=== PATIENT | female | born 1935 | race Caucasian/White ===

== ENCOUNTER 2019-07-18 17:04 | Inpatient (IN) ==
--- NOTE | 2019-07-18 17:52 | PROVIDER DOCUMENTATION ---
HPI-General Adult - General Chief Complaint: Abnormal Lab[s] Stated Complaint: HEMOGLOBIN LOW Time Seen by Provider: 07/18/19 17:36 Source: patient Allergies/Adverse Reactions: Patient Allergies Allergy/AdvReac Type Severity Reaction Status Date / Time No Known Allergies Allergy Verified 01/26/19 06:32 Home Medications: Home Medication List Medication Instructions Recorded Confirmed Last Taken Type Glipizide E.r. [Glucotrol Xl] 7.5 mg PO DAILY 07/24/12 01/26/19 01/25/19 08:00 History Metoprolol Succinate E.r. [Toprol 50 mg PO QAM 07/24/12 01/26/19 01/26/19 05:30 History Xl] SIMVAstatin [Zocor] 40 mg PO HS 07/24/12 01/26/19 01/25/19 19:00 History Apixaban [Eliquis] 5 mg PO BID #0 tablet 01/25/14 01/26/19 01/23/19 Rx Propafenone S.r. [Rythmol Sr] 225 mg PO BID #60 capsule 01/25/14 01/26/19 01/25/19 19:00 Rx Metformin HCl 1,000 mg PO QAM 04/01/16 01/26/19 01/25/19 19:00 History Omeprazole [Prilosec] 20 mg PO DAILY 02/09/17 01/26/19 01/26/19 05:30 History Meclizine [Antivert] 12.5 mg PO BID 09/08/17 01/26/19 01/26/19 05:30 History Multivit-Min/FA/Lycopen/Lutein 1 each PO HS 09/08/17 01/26/19 01/25/19 19:00 History [Centrum Silver Tablet] [place]-3 Fatty Acids/Fish Oil [Fish 1 each PO DAILY 09/08/17 01/26/19 01/25/19 19:00 History Oil 1,000 mg Capsule] Aspirin EC 81 mg PO DAILY #30 tab 09/10/17 01/26/19 01/23/19 Rx Insulin Glargine,Hum.rec.anlog 15 unit SQ QAM 11/11/18 01/26/19 01/25/19 07:00 History [Lantus Solostar] Venlafaxine [Effexor] 37.5 mg PO DAILY 11/11/18 01/26/19 01/25/19 19:00 History Ascorbate Calcium [Vitamin C] 500 mg PO DAILY 01/22/19 01/26/19 01/26/19 05:30 History Cyanocobalamin (Vitamin B-12) 1,000 mcg PO QAM 01/22/19 01/26/19 01/26/19 05:30 History [Vitamin B-12] Donepezil [Aricept] 5 mg PO QHS 01/22/19 01/26/19 01/25/19 19:00 History Iron,Carb/Vit C/Vit B12/Folic 1 ea PO DAILY 01/22/19 01/26/19 01/25/19 19:00 History [Iron 100 Plus Tablet] LISINOpril [Prinivil] 20 mg PO DAILY 01/22/19 01/26/19 01/25/19 08:00 History Quetiapine [Seroquel] 25 mg PO HS 01/22/19 01/26/19 01/25/19 19:00 History Sennosides/Docusate Sodium 1 ea PO BID 01/22/19 01/26/19 01/26/19 05:30 History [Senna-S Laxative Tablet] Hydrocodone/Acetaminophen [[place] 1 ea PO Q4H PRN PRN #20 tab 01/26/19 Unknown Rx 5-325 Tablet] Ondansetron HCl [Zofran] 4 mg PO Q4H PRN PRN #10 tab 01/26/19 Unknown Rx - History of Present Illness -Gen Adult Nature of Presenting Problems: Pt. is 84 yof that presents with c/o dizziness and reports she went to her PCP and was told her blood count was low and to go to the ED. Pt. denies any other complaints. Pt. reports she is on a blood thinner. 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 Location of Pain/Injury: reports: head. denies: none, face, mouth, neck, chest, upper extremity, hand(s), abdomen, back, pelvis, genitalia, lower extremity, feet, upper body, lower body, generalized, other Pain Radiation: reports: no radiation. denies: arm(s), back, buttocks, chest, epigastric, feet, groin, jaw, flank (L), legs (lower), LLQ, LUQ, neck, periumbilical, flank (R), RLQ, RUQ, shoulder(s), scapula, scrotal, sternal notch, suprapubic, legs (upper), urethral, vaginal, other Quality of Pain: reports: other (Tenderness). denies: burning, indigestion, th robbing Severity: reports: mild. denies: moderate, severe Onset/Duration: reports: gradual, other (One month) Timing: reports: still present. denies: improving, intermittent, getting worse Context/Activities at Onset: reports: none. denies: light activity, moderate activity, vigorous activity, recent emotional stress, recent physical stress, recent trauma history, possible bad food, cold exposure, eating, out of country travel, rest, sleep, sexual activity, other Modifying Factors: improves with: nothing Associated Symptoms: reports: fatigue, headaches, nausea, shortness of breath, weakness. denies: denies symptoms, anxiety, arm pain, back/neck pain, chest pain, constipation, cough, diaphoresis, diarrhea, dizziness, EENT symptoms, fever/chills, genitourinary problems, heartburn, joint pain, loss of appetite, malaise, muscle aches, sinus congestion/drainage, rash, seizure, sensory/motor loss, pain with inspiration, swelling/mass in abdomen, syncope, vomiting, trouble walking, other Similar Symptoms Previously?: Yes Recently seen or treated by another doctor?: Yes Review of Systems - Adult - REVIEW OF SYSTEMS - ADULT Constitutional: reports: no symptoms reported Eyes: reports: no symptoms reported Ears, Nose, Mouth & Throat: reports: no symptoms reported Cardiovascular: reports: no symptoms reported Respiratory: reports: see HPI, shortness of breath. denies: chronic cough, dyspnea on exertion, excessive sputum production, wheezing Gastrointestinal: reports: see HPI, nausea. denies: hematemesis, diarrhea, vomiting Genitourinary: reports: no symptoms reported Musculoskeletal: reports: no symptoms reported Integumentary: reports: no symptoms reported Neurological: reports: see HPI, dizziness/vertigo, headache/migraines. denies: paresthesia, seizure, tremors Psychiatric: reports: no symptoms reported Past History - Adult - PAST MEDICAL HISTORY-ADULT Review of Records: reports: Old Records Reviewed, Nursing Assessment Review, Medications Reviewed, Social history reviewed & non-contributory. Major Childhood Illnesses: reports: denies history Cardiovascular: reports: HTN, other (cath) Respiratory: reports: denies history Gastrointestinal: reports: denies history Obstetrical/Gynecological: reports: denies history Genitourinary: reports: other (renal cyst) Musculoskeletal: reports: arthritis Neurological: reports: denies history Psychiatric: reports: denies history Endocrine/Immune: reports: Diabetes Other Conditions: reports: other cancer, cataract/glaucoma (cataract) - PRIOR SURGERIES/PROCEDURES Surgical/Procedure History: reports: cholecystectomy, other (breast biopsy, ) - PRIOR HOSPITALIZATIONS Prior Hospitalizations: reports: for other non-related - IMMUNIZATION STATUS Childhood Immunizations: See Nurse Assessment Flu Vaccine: See Nurse Assessment - FAMILY HISTORY Family History: reviewed, not pertinent - SOCIAL HISTORY Smoking: denies Physical Exam-General - PHYSICAL EXAM-ADULT Initial Vital Signs Reviewed: Yes - CONSTITUTIONAL General Appearance: alert, mild distress. negative: anxious, slow to respond, obtunded, combative - EYES Eyes: PERRL/EOMI, pink conjunctivae - HEAD, EARS, NOSE, MOUTH & THROAT HENMT: normocephalic/atraumatic, moist mucous membranes - NECK Neck: non-tender, full range of motion, supple, normal inspection - RESPIRATORY Respiratory: lungs clear, normal breath sounds - CARDIOVASCULAR Cardiovascular: normal peripheral pulses, regular rate, rhythm, no edema. negative: extra beats, irregularly irregular - GASTROINTESTINAL (ABDOMEN) Abdominal Exam: non tender, soft, abnormal bowel sounds (hypoactive). negative: rebound, tenderness, hernia - GENITOURINARY Female Genitalia/Pelvic Exam: deferred Rectal Exam: decreased tone. negative: normal exam, tenderness Hemoccult Exam: heme positive stool - LYMPHATIC Lymphatic: no adenopathy - MUSCULOSKELETAL Back Exam: normal inspection, no CVA tenderness, no vertebral tenderness Extremity: normal range of motion, normal inspection. negative: inflammation, swelling, tenderness Peripheral Pulses: radial (R): 2+, radial (L): 2+ - SKIN Integumentary: pallor. negative: cyanosis, erythema, jaundice, warm - NEUROLOGIC Neurologic: grossly normal, no motor/sensory deficits - PSYCHIATRIC Psych/Mental Status: normal mood/affect, normal thought content, normal thought process, oriented x 3. negative: anxious, paranoid, tearful Progress - PLAN OF CARE/RESULTS Progress/Plan/Lab Results: Vital Signs - 8 hr 07/18/19 17:22 Temperature 98.1 F Pulse Rate 83 Respiratory Rate 20 Blood Pressure 115/53 O2 Sat by Pulse Oximetry 99 Orders Category Date Time Status Orthostatic Vital Signs NOW Care 07/18/19 17:48 Ordered Saline Loc NOW Care 07/18/19 17:36 Active CHEST-PORTABLE [RAD] Stat Exams 07/18/19 17:48 Ordered CBC WITH ELECTRONIC DIFF [HEME] Stat Lab 07/18/19 17:36 Uncollected COMPREHENSIVE METABOLIC PANEL [CHEM] Stat Lab 07/18/19 17:36 Uncollected OCCULT BLOOD SCREENING [STOOL] Stat Lab 07/18/19 17:48 Uncollected TYPE & SCREEN [BBK] Stat Lab 07/18/19 17:36 Uncollected URINALYSIS W/POSS RFLX CULT [URINALYSIS] Stat Lab 07/18/19 17:36 Uncollected EKG [EKG] Stat Ther 07/18/19 17:48 Ordered Laboratory Tests 07/18/19 07/18/19 07/18/19 18:07 18:21 18:21 WBC 6.24 RBC 2.92 L Hgb 6.4 L Hct 23.7 L MCV 81.2 MCH 21.9 L MCHC 27.0 L RDW Std Deviation 17.2 H Plt Count 270 MPV 11.5 H Immature Gran % (Auto) 0.3 Neut % (Auto) 68.3 Lymph % (Auto) 21.5 [place] % (Auto) 7.9 Eos % (Auto) 1.4 Baso % (Auto) 0.6 Immature Gran # (Auto) 0.02 Neut # (Auto) 4.26 Lymph # (Auto) 1.34 [place] # (Auto) 0.49 Eos # (Auto) 0.09 Baso # (Auto) 0.04 Sodium 135 L Potassium 4.7 Chloride 99 Carbon Dioxide 18 L Anion Gap 18 BUN 23 H Creatinine 1.4 H Estimated GFR/1.73 m2 36 BUN/Creatinine Ratio 16 Glucose 168 H Calculated Osmolality 278 Calcium 8.9 Total Bilirubin 0.25 AST 25 ALT 11 Alkaline Phosphatase 51 Total Protein 6.6 Albumin 3.9 Globulin 2.7 Albumin/Globulin Ratio 1.4 Urine Source CLEAN CATCH Urine Color YELLOW Urine Turbidity CLEAR Urine pH 6.5 Ur Specific [place] 1.015 Urine Protein 30 A Ur Glucose (Stick) NEGATIVE Ur Ketones (Stick) NEGATIVE Urine Blood NEGATIVE Urine Nitrite NEGATIVE Urine Bilirubin NEGATIVE Urobilinogen Dipstick NORMAL Urine Leukocytes SMALL A Urine WBC (Auto) <10 Urine RBC (Auto) <10 U Epithel Cells (Auto) <10 Urine Bacteria (Auto) NEGATIVE Urine Crystals NONE SEEN Small Round Cells Not Reportable Urine Casts Not Reportable Urine Yeast-like Cells Not Reportable Blood Type Antibody Screen Crossmatch 07/18/19 18:27 WBC RBC Hgb Hct MCV MCH MCHC RDW Std Deviation Plt Count MPV Immature Gran % (Auto) Neut % (Auto) Lymph % (Auto) [place] % (Auto) Eos % (Auto) Baso % (Auto) Immature Gran # (Auto) Neut # (Auto) Lymph # (Auto) [place] # (Auto) Eos # (Auto) Baso # (Auto) Sodium Potassium Chloride Carbon Dioxide Anion Gap BUN Creatinine Estimated GFR/1.73 m2 BUN/Creatinine Ratio Glucose Calculated Osmolality Calcium Total Bilirubin AST ALT Alkaline Phosphatase Total Protein Albumin Globulin Albumin/Globulin Ratio Urine Source Urine Color Urine Turbidity Urine pH Ur Specific [place] Urine Protein Ur Glucose (Stick) Ur Ketones (Stick) Urine Blood Urine Nitrite Urine Bilirubin Urobilinogen Dipstick Urine Leukocytes Urine WBC (Auto) Urine RBC (Auto) U Epithel Cells (Auto) Urine Bacteria (Auto) Urine Crystals Small Round Cells Urine Casts Urine Yeast-like Cells Blood Type O POSITIVE Antibody Screen NEGATIVE Crossmatch See Detail Discussed results and plan of care with patient. Patient agrees with plan and verbalizes understanding. Result Diagrams: 07/18/19 18:21 07/18/19 18:21 - XRAY 1 XRAY Study: Chest ([facility] - [address] [facility], [address] [address] [place] [id number] [facility] - [address] [place] [address] Department of Imaging Patient: RONALD ALEXANDER Date: 07/18/19MR#: [id number] : 6ADM [id number] Age/Sex: 84/FRoom/Bed: Loc: ED Ordering Physician: Jackie Mckinney Family Physician: Vira Ravi MD Reason for Procedure: SOB ___ Signed EXAM: CHEST-PORTABLE INDICATION: SOB TECHNIQUE: One view COMPARISON: 01/22/2019 FINDINGS: There is evidence of prior granulomatous disease, stable. The lungs are grossly clear. There is no discrete pleural fluid collection or pneumothorax. The cardiomediastinal silhouette and central vasculature are grossly unremarkable. IMPRESSION: No evidence of acute pathology by plain radiograph. Electronically signed by Jorge Johnson 07/18/2019 6:57 PM 07/18/191856 Interpreting Physician: Jorge Johnson MD Dictated Date/Time: 07/18/191856 cc: Jackie Mckinney; Vira Ravi MD) XRAY Interpretation: See note - CT/MRI 1 CT Study: Head ([facility] - [address] [facility], [address] [place], [place] [id number] [facility] - [address] [place] [address] Department of Imaging Patient: RONALD ALEXANDER Date: 07/18/19#: [id number] : 6ADM [facility] [id number] Age/Sex: 84/FRoom/Bed: Loc: ED Ordering Physician: Jackie Mckinney Family Physician: Vira Ravi MD Reason for Procedure: Headache and on blood thinners ___ Signed EXAM: CT HEAD W/O CONTRAST INDICATION: Headache and on blood thinners TECHNIQUE: This exam was performed using automated exposure control, adjustment of mA or kV according to patient size, and/or use of iterative reconstruction technique. COMPARISON: 09/08/2017 FINDINGS: There is patchy low attenuation in the periventricular and subcortical white matter suggesting fairly advanced microangiopathy, stable. There is no definite acute infarct given the limited sensitivity of CT versus MRI. There is no discrete intracranial mass, mass effect, or intracranial hemorrhage. The surrounding soft tissues and bony structures are essentially unremarkable. IMPRESSION: No evidence of acute intracranial pathology. Electronically signed by Jorge Johnson 07/18/2019 6:49 PM 07/18/191848 Interpreting Physician: Jorge Johnson MD Dictated Date/Time: 07/18/191847 cc: Jackie Mckinney; Vira Ravi MD) CT Results: See note - CONSULTS/PCP/HOSPITALIST Notification #1 *Consult/PCP/Hospitalist*: Dr. Castañeda Time Discussed: 19:55 Reason/Comments: Admission Consult Disposition: Will see in ED, Admit #2 Consult: Dr. Kebede Time Discussed: 20:04 Reason/Comments: Consult Consult Disposition: other (Hold the eliquis, NPO accept ice chips, transfuse as needed. Vitamin K 10mg IV once, will see patient later, serial Hct. Protonix BID.) Departure - Departure Date of Disposition Decision: 07/18/19 Time of Disposition Decision: 19:48 DIAGNOSIS: Hyperglycemia GI bleed Qualifiers: GI bleed type/associated pathology: unspecified gastrointestinal hemorrhage typ e Qualified Code(s): K92.2 - Gastrointestinal hemorrhage, unspecified Profound anemia Qualifiers: Anemia type: unspecified type Qualified Code(s): D64.9 - Anemia, unspecified Chronic renal insufficiency Qualifiers: Chronic kidney disease stage: unspecified stage Qualified Code(s): N18.9 - Chronic kidney disease, unspecified Disposition: ADMITTED INPATIENT 09 Certified Medical Emergency: Emergent Condition: Stable Referrals and Follow-Ups: Vira Ravi MD [Primary Care Provider] - - Critical Care Note This patient required my direct & personal management of CC.: Yes Total Time (mins): 35 Critical Care Statement: This patient required my direct personal management to treat or rule out processes, the absence of which, could potentiallly result in sudden, clinically significant life or limb threatening deterioration. Attestation - Physician/ CHINEDU Attestation Patient care was provided by Advanced Practice Provider:: Yes Advanced Practice Provider:: Jackie Mckinney Advanced Practice Provider documentation review:: The Mid-level provider documentation, treatment plan and medical decision making was reviewed by the physician who agrees with all treatment and medical decision making by the MLP. The physician spent face to face time with patient:: No Advanced Practice Provider documentation review:: Supervising physician onsite and consulted in the evaluation and care of this patient. The physician did not have a face to face encounter with the patient.
[2019-07-18 18:44] LABS: URINE SOURCE CLEAN CATCH
[2019-07-18 18:51] LABS: BASO# 0.04 X1000 (0.0-0.2); BASO% 0.6 % (0.0-0.8); EOS# 0.09 X1000 (0.0-0.7); EOS% 1.4 % (0.0-10.0); HEMATOCRIT 23.7 % (37.0-47.0); HEMOGLOBIN 6.4 g/dL (12.0-16.0); IMM GRAN# 0.02 X1000 (0.0-0.04); IMM GRAN% 0.3 % (0.0-0.5); LYMPH# 1.34 X1000 (1.2-3.4); LYMPH% 21.5 % (20.5-51.1); MCH 21.9 PG (27-31); MCV 81.2 FL (81-99); MONO# 0.49 X1000 (0.11-0.59); MONO% 7.9 % (1.7-9.3); MPV 11.5 FL (7.4-10.4); NEUT# 4.26 X1000 (1.4-6.5); NEUT% 68.3 % (42.2-75.2); PLT 270 X1000 (130-400); RBC 2.92 XMIL (4.2-5.4); RDW 17.2 % (11.5-14.5); WBC 6.24 X1000 (4.8-10.8)
--- NOTE | 2019-07-18 18:51 | Diag Imaging Result Doc PS360 ---
EXAM: CT HEAD W/O CONTRAST INDICATION: Headache and on blood thinners TECHNIQUE: This exam was performed using automated exposure control, adjustment of mA or kV according to patient size, and/or use of iterative reconstruction technique. COMPARISON: 09/08/2017 FINDINGS: There is patchy low attenuation in the periventricular and subcortical white matter suggesting fairly advanced microangiopathy, stable. There is no definite acute infarct given the limited sensitivity of CT versus MRI. There is no discrete intracranial mass, mass effect, or intracranial hemorrhage. The surrounding soft tissues and bony structures are essentially unremarkable. IMPRESSION: No evidence of acute intracranial pathology. Electronically signed by Jorge Johnson 07/18/2019 6:49 PM
[2019-07-18 18:58] LABS: UR EPITHELIAL CELLS <10 /HPF (<10); URINE BACTERIA NEGATIVE /HPF; URINE RBC <10 /HPF (<10); URINE WBC <10 /HPF (<10)
--- NOTE | 2019-07-18 18:59 | Diag Imaging Result Doc PS360 ---
EXAM: CHEST-PORTABLE INDICATION: SOB TECHNIQUE: One view COMPARISON: 01/22/2019 FINDINGS: There is evidence of prior granulomatous disease, stable. The lungs are grossly clear. There is no discrete pleural fluid collection or pneumothorax. The cardiomediastinal silhouette and central vasculature are grossly unremarkable. IMPRESSION: No evidence of acute pathology by plain radiograph. Electronically signed by Jorge Johnson 07/18/2019 6:57 PM
[2019-07-18 19:00] LABS: BILIRUBIN URINE NEGATIVE (NEGATIVE); BLOOD URINE NEGATIVE (NEGATIVE); COLOR YELLOW; GLUCOSE URINE NEGATIVE (NEGATIVE); KETONE URINE NEGATIVE (NEGATIVE); PH URINE 6.5; SP GRAVITY URINE 1.015; TURBIDITY URINE CLEAR (CLEAR)
[2019-07-18 19:01] LABS: LEUKOCYTES URINE SMALL (NEGATIVE); NITRITE URINE NEGATIVE (NEGATIVE); PROTEIN URINE 30 mg/dL (NEGATIVE); UROBILINOGEN URINE NORMAL (NORMAL)
[2019-07-18] MEDS ORDERED: NS 500 ML IV ONE (19:02)
[2019-07-18 19:03] LABS: URINE CRYSTALS NONE SEEN
[2019-07-18] MEDS ORDERED: PROTONIX IV ONE (19:05)
[2019-07-18 19:08] LABS: ALB/GLOB RATIO 1.4; ALBUMIN 3.9 g/dL (3.5-5.0); CALCIUM 8.9 mg/dL (8.8-10.2); CREATININE 1.4 mg/dL (0.5-0.9); POTASSIUM 4.7 mmol/L (3.5-5.1); TOTAL BILIRUBIN 0.25 mg/dL (0.20-1.00); TOTAL PROTEIN 6.6 g/dL (6.3-8.3)
[2019-07-18 20:05] LABS: INR 1.29; PROTIME 16.3 Seconds (11.0-16.0)
[2019-07-18] MEDS ORDERED: VITAMIN K 10 MG in NS 50 ML IV ONE (20:05)
[2019-07-18 20:06] LABS: PTT 31.4 Seconds (22.3-41.8)
[2019-07-18] MEDS: SODIUM CHLORIDE 0.9% INJ ONE (20:41)
[2019-07-18] MEDS ORDERED: SODIUM CHLORIDE 0.9% INJ ONE (23:14)
[2019-07-18] MEDS ORDERED: CATAPRES PO ONE (23:52)
[2019-07-19] MEDS ORDERED: ZOFRAN IV PRN (00:21)
[2019-07-19] MEDS ORDERED: NS 1,000 ML IV ONE (00:21)
[2019-07-19] MEDS ORDERED: TYLENOL PO PRN (00:21)
[2019-07-19] MEDS: PROTONIX IV SCH ×3 (00:47→20:13)
[2019-07-19] MEDS: LABETALOL IV PRN ×2 (00:47→20:11)
--- NOTE | 2019-07-19 00:53 | HISTORY AND PHYSICAL ---
CHIEF COMPLAINT: Weakness and abnormal labs. HISTORY OF PRESENT ILLNESS: This is an 84-year-old female with history of CVA, she reported dizziness. She came in today and found to have a low blood count. Her H and H here was 6 and 23. She is on Eliquis and she is on aspirin. She had a colonoscopy in the past with Dr. Valentine. She reports no weight loss. She does have PICA specifically for ice chips and cravings, that has been for the last month or 2. She reports black tarry stools. No bright red blood per rectum. No throwing up. She has had some left lower quadrant pain. PAST MEDICAL HISTORY: 1. She has atrial fibrillation. 2. She has a history of CVA. 3. Dementia. 4. Dyslipidemia. 5. Hypertension. 6. Diabetes. 7. Insulin dependent. PAST SURGICAL HISTORY: She has had a lumpectomy for breast cancer. FAMILY HISTORY: She had a son with esophageal cancer and brother. Colonoscopy per Joe. SOCIAL HISTORY: No tobacco, ethanol. REVIEW OF SYSTEMS: Positive for dyspnea. ALLERGIES: No known drug allergies. MEDICATIONS: Aricept 5 at bedtime, meclizine, Effexor 37.5, glipizide 7.5 daily, Icar-C daily, insulin 15 daily, metformin 1 g daily, Prilosec 20 daily, lisinopril 20 daily, sennoside b.i.d., metoprolol 50 daily, Seroquel 25 at bedtime, aspirin 81 daily, Eliquis 5 b.i.d., [facility] p.r.n., propafenone 225 b.i.d. and Zofran. REVIEW OF SYSTEMS: Otherwise negative. PHYSICAL EXAM: VITAL SIGNS: Blood pressure is 189/79, heart rate is 63, respiratory rate 21, temperature 98 degrees. GENERAL: A well-developed female, in no acute distress. HEENT: Head: Normocephalic, atraumatic. Eye: Pupils equal, round, reactive to light. Extraocular movements were intact. Ear, nose and throat: She had moist mucous membranes. NECK: Supple. CARDIOVASCULAR: Regular rate and rhythm. PULMONARY: Bilateral breath sounds, clear to auscultation. GASTROINTESTINAL: Soft, nontender, nondistended. Bowel sounds are positive. LABORATORY DATA: Her hemoglobin and hematocrit 6 and 23. INR is 1.29. Basic was normal, except for creatinine of 1.4, this is kind of baseline for her. ASSESSMENT: This is an 84-year-old female with history of atrial fibrillation, dementia with a gastrointestinal blood. She is anticoagulated. She has got symptomatic anemia, reportedly Hemoccult positive. 1. Gastrointestinal bleed, possibly upper based on her history of melena. She sees Dr. Diaz, who we will consult. We will continue IV Protonix and follow. Obviously, hold aspirin, hold Eliquis and monitor her hemoglobin and hematocrit. She is getting 2 units of blood. 2. Atrial fibrillation which appears to be rate controlled. We will continue her regular medications and follow. They still have not been updated though. I will keep her on her propafenone and we have given her some clonidine. 3. Hypertension. She has uncontrolled hypertension, so we will resume her medications and adjust accordingly. 4. Type 2 diabetes. We will monitor her blood sugars, A1c, which has been previously well controlled. Hold her Lantus for the time being. We may need to adjust it further. 5. Dementia. Appears to be controlled. cc: Franky Castañeda MD
--- NOTE | 2019-07-19 07:43 | EKG Report ---
Test Performed on : 07/18/2019 7:00:25 PM Test Reason : CP Blood Pressure : / mmHG Vent. Rate : 064 BPM Atrial Rate : 064 BPM P-R Int : 170 ms QRS Dur : 088 ms QT Int : 442 ms P-R-T Axes : 087 018 053 degrees QTc Int : 455 ms Normal sinus rhythm. Nonspecific ST and T wave abnormality Abnormal ECG When compared with ECG of 22-JAN-2019 13:47, AL interval has decreased Nonspecific T wave abnormality no longer evident in Inferior leads Unconfirmed Result
[2019-07-19] MEDS: HUMULIN R SUBQ SCH ×4 (08:06→21:06)
[2019-07-19 09:52] LABS: BASO# 0.03 X1000 (0.0-0.2); BASO% 0.7 % (0.0-0.8); EOS# 0.08 X1000 (0.0-0.7); EOS% 1.8 % (0.0-10.0); HEMOGLOBIN 8.4 g/dL (12.0-16.0); LYMPH# 1.15 X1000 (1.2-3.4); LYMPH% 25.7 % (20.5-51.1); MCH 24.6 PG (27-31); MCV 84.8 FL (81-99); MONO# 0.38 X1000 (0.11-0.59); MONO% 8.5 % (1.7-9.3); MPV 10.9 FL (7.4-10.4); NEUT# 2.84 X1000 (1.4-6.5); NEUT% 63.3 % (42.2-75.2); PLT 210 X1000 (130-400); RBC 3.42 XMIL (4.2-5.4); RDW 17.8 % (11.5-14.5); WBC 4.48 X1000 (4.8-10.8)
[2019-07-19 10:03] LABS: MAGNESIUM 1.3 mg/dL (1.5-2.7); PHOSPHORUS 4.4 mg/dL (2.7-4.5)
[2019-07-19 10:05] LABS: ALB/GLOB RATIO 1.9; ALBUMIN 3.6 g/dL (3.5-5.0); CALCIUM 8.6 mg/dL (8.8-10.2); CREATININE 1.1 mg/dL (0.5-0.9); POTASSIUM 4.6 mmol/L (3.5-5.1); TOTAL BILIRUBIN 0.65 mg/dL (0.20-1.00); TOTAL PROTEIN 5.5 g/dL (6.3-8.3)
[2019-07-19] MEDS: RYTHMOL PO SCH ×2 (10:18→20:11)
[2019-07-19] MEDS: SODIUM CHLORIDE 0.9% INJ ONE ×2 (10:23→20:13)
[2019-07-19] MEDS ORDERED: NORCO-5 PO PRN (12:24)
[2019-07-19] MEDS ORDERED: RYTHMOL SR PO SCH (12:30)
[2019-07-19] MEDS: PRINIVIL PO SCH (14:28)
[2019-07-19] MEDS: TOPROL XL PO SCH (14:28)
--- NOTE | 2019-07-19 14:32 | PROGRESS NOTE ---
DATE: 07/19/2019 INTERVAL HISTORY: Ms. Malin was admitted overnight for symptoms of weakness, low hemoglobin, dizziness, pica, and was found to have anemia. Overnight, no acute events. She has not had any bowel movements. She received 2 units of packed red blood cells with appropriate rise in hemoglobin. VITALS: Temperature 97.9 degrees, pulse 69, respiratory rate 17, blood pressure 178/66, saturating 96% on room air. PHYSICAL EXAMINATION: She is not in acute distress. Her daughter is at bedside. Oral cavity is dry. Air entry bilaterally equal. No wheeze, rhonchi, crackles. Cardiovascular: S1, S2 normal. No murmur, rub, or gallop. Appears regular. Abdomen: Soft, nontender. No lower extremity edema. She is alert and oriented x3. LABS: Suggestive of hemoglobin of 8.4, platelets of 210,000. BUN of 16, creatinine 1.1. MICROBIOLOGY: Stool occult blood test was positive. IMAGING: No new imaging. ASSESSMENT AND PLAN: 1. Symptomatic acute blood loss anemia from acute gastrointestinal bleed in the setting of use of aspirin and apixaban. Continue intravenous Protonix. Her aspirin and apixaban have been held. Follow up daily CBC. Gastroenterology team has been consulted for possible need for endoscopy. I will continue her on iron, carbonyl, ascorbic acid. She has not been having any bowel movements since presentation. 2. History of paroxysmal atrial fibrillation. Currently in normal sinus rhythm. Continue home metoprolol and propafenone. I am holding aspirin and Eliquis. 3. Essential hypertension. Add back her home metoprolol as well as lisinopril. I will also give her as needed intravenous labetalol. 4. Others. Continue home donepezil, [place] as needed for pain, meclizine as needed for vertigo, quetiapine at nighttime, senna for constipation as well as venlafaxine. 5. Chronic kidney disease stage 3 appears to be stable. 6. Insulin-dependent diabetes mellitus. I will continue her on sliding scale insulin for now. DISPOSITION: Continue to monitor patient inside the hospital as we await further GI recommendation. Plan of care discussed with the patient and her family at bedside. Their questions have been satisfactorily answered. cc: Alvaro Hedrick MD
--- NOTE | 2019-07-19 15:03 | CONSULTATION ---
DATE OF CONSULTATION: 07/19/2019 REASON FOR CONSULTATION: Melena, anemia. HISTORY OF PRESENT ILLNESS: This is an 84-year-old female, known to our practice. She was last seen in 2018. She has reported some right lower quadrant tenderness that she reports as chronic for over a year. She has noted some dark stools, and thought it was related to her iron supplements. She has reported some dizziness. She reported some increased reflux, and had went back to daily Prilosec after her last office visit. We had tried to cut it down to every other day, and she reported a flare-up of her reflux and heartburn, so she had went back to daily medication. Her last endoscopy by our report, she had an EGD in 04/2018 that showed normal esophagus, mild scattered and patchy gastroscopy, and normal duodenum. Pathology had showed negative H. pylori and negative for intestinal metaplasia and malignancy. Her last colonoscopy was in 10/2014 that showed 4 polyps in the splenic flexure that were ablated, and she was recommended to have a followup colonoscopy at that time in 3 years. When she came into the hospital, she had severe anemia. Hemoglobin and hematocrit were 6.4 and 23.7. She has received 2 units of packed red blood cells since admission. She did report some shortness of breath and dizziness prior to admission. She does take Eliquis for history of CVA and atrial fibrillation. PAST MEDICAL HISTORY: Atrial fibrillation, history of CVA, dementia, dyslipidemia, hypertension, diabetes, insulin dependency. PAST SURGICAL HISTORY: Breast lumpectomy. ALLERGIES: No known drug allergies. HOME MEDICATIONS: Eliquis 5 mg twice a day, vitamin C 500 mg daily, aspirin 81 mg daily, vitamin B12 at 1000 mcg daily, Aricept 5 mg daily, Glucotrol XL 7.5 mg daily, [place] 5/325 one every 4 hours as needed, insulin Lantus 15 units every day, iron plus C plus B12 and folate one daily, Prinivil 20 mg daily, Antivert 12.5 mg twice a day, metformin 1000 mg daily, metoprolol 50 mg daily, Prilosec 20 mg daily, Zofran 4 mg every 4 hours as needed, Rythmol 225 mg twice a day, Seroquel 25 mg every night, Senna with stool softener 1 twice a day, Zocor 40 mg daily, Effexor 37.5 mg daily. SOCIAL HISTORY: No reported tobacco or alcohol use. FAMILY HISTORY: She had a son and a brother that from esophageal cancer. REVIEW OF SYSTEMS: Per history of present illness. PHYSICAL EXAMINATION: Vital Signs: Temperature 97.9 degrees, pulse 69, respirations 17, blood pressure 178/66. General: The patient is awake, alert, in no acute distress. HEENT: Normocephalic, atraumatic. Pupils equal, round, reactive to light. Sclerae nonicteric. Respiratory: Lung sounds are essentially clear. Cardiovascular: Regular rate and rhythm. Abdomen: Soft, nontender. Positive bowel sounds. Extremities: No lower extremity edema noted. Neurological: Cranial nerves II through XII are grossly intact. The patient is awake, alert, and oriented. LABORATORY DATA: Hematology: WBC 4.48, hemoglobin 8.4, hematocrit 29.0 (this was after packed red blood cell transfusion), MCV 84.8, platelets 210,000. Coagulation: ProTime 16.3, INR 1.21, PTT 31.4. Chemistry: Sodium 143, potassium 4.6, chloride 107, CO2 of 24, BUN 16, creatinine 1.1, glucose 136. Total bilirubin 0.65, AST 14, ALT 9, alkaline phosphatase 43. IMAGING: Head CT: No evidence of acute intracranial pathology. Chest x-ray: No evidence of acute pathology. ASSESSMENT AND PLAN: 1. Melena. 2. Anemia, requiring blood transfusions. 3. History of gastroscopy by esophagogastroduodenoscopy in 2018. She had a colonoscopy in 2015 with evidence of colon polyps. 4. Atrial fibrillation. Currently, her Eliquis is on hold due to recent gastrointestinal bleeding. 5. Hypertension, diabetes, dementia. Continue current management. Would hold Eliquis, and we will plan for esophagogastroduodenoscopy evaluation tomorrow. Continue to monitor hemoglobin and hematocrit. Transfuse further packed red blood cells if needed. I have discussed esophagogastroduodenoscopy procedure with the patient and her family, and they wish to proceed if indicated. Again, we will plan for esophagogastroduodenoscopy tomorrow. Her last Eliquis was Tuesday morning. Further plans to be made as needed. I have discussed this case with Dr. Valentine. Thank you for this consultation. Dictated by DIANNA Mathias for Itz Valentine MD cc: DIANNA Morgan MD
[2019-07-19 19:07] LABS: HEMATOCRIT 31.5 % (37.0-47.0); HEMOGLOBIN 9.1 g/dL (12.0-16.0); MCH 24.3 PG (27-31); MCHC 28.9 g/dL (33-37); MCV 84.2 FL (81-99); MPV 10.4 FL (7.4-10.4); RBC 3.74 XMIL (4.2-5.4); RDW 17.6 % (11.5-14.5); WBC 5.47 X1000 (4.8-10.8)
[2019-07-19] MEDS: PERICOLACE PO SCH (20:11)
[2019-07-19] MEDS: ARICEPT PO SCH (20:11)
[2019-07-19] MEDS: ANTIVERT PO SCH (20:12)
[2019-07-19] MEDS: SEROQUEL PO SCH (20:12)
[2019-07-19] MEDS ORDERED: ZOCOR PO SCH (21:00)
[2019-07-20] MEDS ORDERED: SODIUM CHLORIDE 0.9% 10 ML ONE (06:17)
[2019-07-20] MEDS: HUMULIN R SUBQ SCH ×3 (07:00→16:55)
[2019-07-20 07:52] LABS: BASO# 0.03 X1000 (0.0-0.2); BASO% 0.6 % (0.0-0.8); EOS# 0.16 X1000 (0.0-0.7); EOS% 3.4 % (0.0-10.0); HEMATOCRIT 29.7 % (37.0-47.0); HEMOGLOBIN 8.4 g/dL (12.0-16.0); LYMPH# 1.18 X1000 (1.2-3.4); LYMPH% 25.2 % (20.5-51.1); MCH 23.9 PG (27-31); MCHC 28.3 g/dL (33-37); MCV 84.6 FL (81-99); MONO# 0.41 X1000 (0.11-0.59); MONO% 8.8 % (1.7-9.3); MPV 11.5 FL (7.4-10.4); PLT 209 X1000 (130-400); RBC 3.51 XMIL (4.2-5.4); RDW 17.7 % (11.5-14.5); WBC 4.68 X1000 (4.8-10.8)
[2019-07-20 08:43] LABS: CALCIUM 8.3 mg/dL (8.8-10.2); CREATININE 1.1 mg/dL (0.5-0.9); POTASSIUM 4.3 mmol/L (3.5-5.1)
[2019-07-20] MEDS ORDERED: DIPRIVAN 1% ONE (12:07)
[2019-07-20] MEDS ORDERED: XYLOCAINE-MPF 2% ONE (12:07)
--- NOTE | 2019-07-20 12:53 | ENDOSCOPY OPERATIVE NOTE ---
[facility] ENDOSCOPY OPERATIVE NOTE , PATIENT: Aneta Malin ADMISSION DATE: 07/20/2019 MR#: [id number] : 1935 EGD PROCEDURE REPORT PROCEDURE DATE: 07/20/2019 SURGEON: Itz Valentine MD STATUS: inpatient STEEL GR[employer]ER: Bethany Rashid and Demi Fernandez PREOPERATIVE DIAGNOSIS: The patient is a 84 yr old female here for an EGD due to anemia secondary to chronic blood loss and melena. PROCEDURE PERFORMED: EGD, diagnostic MEDICATIONS: Per Anesthesia TOPICAL ANESTHETIC: none CONSENT: The patient understands the risks and benefits of the procedure and understands that these r isks include, but are not limited to: sedation, allergic reaction, infection, perforation and/or bleeding. Alternative means of evaluation and treatment include, among others: physical exam, x-rays, and/or surgical intervention. The patient elects to proceed with this endoscopic procedure. HISORY AND PHYSICAL: 07/20/2019 DESCRIPTION OF PROCEDURE: During intra-op preparation period all mechanical and medical equipment was checked for proper function. Hand hygiene and appropriate measures for infection prevention was taken. After the risks, benefits and alternatives of the procedure were thoroughly explained, Informed consent was verified, confirmed and timeout was successfully executed by the treatment team. The patient was anesthetized with topical anesthesia and the [id number] ([id number]) endoscope was introduced through the mouth and advanced to the second portion of the duoden um. Retroflexion was performed in the stomach and revealed no abnormalities. The gastroscope was then slowly withdraw n and removed. ESOPHAGUS: The mucosa of the esophagus appeared normal. STOMACH: Mild gastritis (inflammation) was found in the gastric body. A few 2 mm sessile polyps wer e found in the gastric body. DUODENUM: The duodenal mucosa showed no abnormalities. SPECIMENS REMOVED: No ADVERSE EVENTS: There were no complications. POSTOPERATIVE DIAGNOSIS: 1. The mucosa of the esophagus appeared normal 2. Gastritis (inflammation) was found in the gastric body 3. Few 2 mm polyps were found in the gastric body 4. The duodenal mucosa showed no abnormalities RECOMMENDATIONS: 1. Resume pre-procedure medications 2. Resume regular diet 3. Return to floor when standard parameters are met 4. Follow up with GI Doctor in 2 months REPEAT EXAM: Itz Valentine MD eSigned: Itz Valentine MD 07/20/2019 12:52 PM cc: PATIENT NAME: Aneta Malin MR#: [id number]
[2019-07-20] MEDS: VITAMIN B-12 PO SCH (13:16)
[2019-07-20] MEDS: TOPROL XL PO SCH (13:17)
[2019-07-20] MEDS: PRINIVIL PO SCH (13:18)
[2019-07-20] MEDS: EFFEXOR PO SCH (13:18)
[2019-07-20] MEDS: PERICOLACE PO SCH ×2 (13:18→23:59)
[2019-07-20] MEDS: ANTIVERT PO SCH (13:18)
[2019-07-20] MEDS: RYTHMOL PO SCH ×2 (13:18→23:59)
[2019-07-20] MEDS: VITAMIN C PO SCH (13:20)
[2019-07-20] MEDS: ICAR-C PLUS PO SCH (13:20)
--- NOTE | 2019-07-20 18:25 | PROGRESS NOTE ---
DATE: 07/20/2019 INTERVAL HISTORY: The patient is status post endoscopy this morning showing mild gastritis but no definite source of bleeding. The patient with no clear signs or symptoms of bleeding. No further melena. There are no signs or symptoms of ongoing bleeding. No melena. She had appropriate increase in blood counts after 2 units and blood counts were roughly stable since then. REVIEW OF SYSTEMS: Twelve point review of systems negative except as per interval history. LABS: WBC 4.6, hemoglobin 8.4, hematocrit 29.7, platelets 209,000. Sodium 143, potassium 4.3, bicarb 25, BUN 11, creatinine 1.1, glucose 151 .Vital signs: T-max 98.4 degrees, pulse 59, respirations 16, blood pressure 161/71, O2 saturation 98% on room air. PHYSICAL EXAMINATION: General: No acute distress. Vitals: As above. HEENT: Normocephalic, atraumatic. Moist mucous membranes. No cervical adenopathy. Cardiovascular: Regular rate and rhythm. No murmurs noted. Pulmonary: Clear to auscultation bilaterally. No wheezing, rales, or rhonchi. Abdomen: Soft, nontender, nondistended. Bowel sounds positive. Extremities: Peripheral pulses intact. No clubbing, cyanosis. Neurologic: Cranial nerves grossly intact. No focal deficits identified. Psychiatric: Normal mood and affect. Awake, alert, oriented x3. ASSESSMENT AND PLAN: 1. Likely gastrointestinal bleed with acute blood loss anemia. Appropriate response to transfusion of 2 units after admission. Blood counts are roughly stable since then. Status post EGD this morning showing gastritis but no clear sign of bleeding. We will monitor blood counts overnight but if they remain stable tomorrow, she can likely be discharged home. Holding Eliquis currently until we are sure blood counts are stable. Will likely restart in the morning. 2. Paroxysmal atrial fibrillation, currently normal sinus rhythm. Holding Eliquis currently as above. 3. Hypertension. The patient missed some of her regular medicines this morning as she was NPO for EGD, but we will get her back on those. 4. Diabetes. Good control on current regimen, monitor. 5. Likely chronic kidney disease 3. Creatinine roughly stable. Up slightly on admission but back down to where it looks like she lives now. Continue to monitor. 6. Dementia. Patient pretty coherent and alert and with it so likely quite mild. Monitor. 7. Hyperlipidemia. Continue statin.
[2019-07-20] MEDS ORDERED: NORVASC PO ONE (18:28)
[2019-07-20] MEDS: SEROQUEL PO SCH (23:59)
[2019-07-21] MEDS: ARICEPT PO SCH (00:01)
[2019-07-21] MEDS ORDERED: PRILOSEC PO SCH (07:00)
[2019-07-21 07:36] VITALS: BP 153/64
[2019-07-21 07:42] LABS: BASO# 0.03 X1000 (0.0-0.2); BASO% 0.6 % (0.0-0.8); EOS# 0.15 X1000 (0.0-0.7); EOS% 2.9 % (0.0-10.0); HEMATOCRIT 30.6 % (37.0-47.0); HEMOGLOBIN 8.6 g/dL (12.0-16.0); LYMPH# 1.37 X1000 (1.2-3.4); LYMPH% 26.6 % (20.5-51.1); MCHC 28.1 g/dL (33-37); MCV 85.2 FL (81-99); MONO# 0.51 X1000 (0.11-0.59); MONO% 9.9 % (1.7-9.3); MPV 10.8 FL (7.4-10.4); NEUT# 3.09 X1000 (1.4-6.5); PLT 196 X1000 (130-400); RBC 3.59 XMIL (4.2-5.4); RDW 18.1 % (11.5-14.5); WBC 5.15 X1000 (4.8-10.8)
[2019-07-21] MEDS: HUMULIN R SUBQ SCH ×3 (07:52→12:01)
[2019-07-21 08:27] LABS: CALCIUM 8.5 mg/dL (8.8-10.2); CREATININE 1.2 mg/dL (0.5-0.9); POTASSIUM 4.3 mmol/L (3.5-5.1)
[2019-07-21] MEDS ORDERED: PERIDEX MT SCH (09:00)
[2019-07-21] MEDS ORDERED: ELIQUIS PO SCH (09:00)
[2019-07-21] MEDS ORDERED: NORVASC PO SCH (09:00)
[2019-07-21] MEDS: VITAMIN B-12 PO SCH (09:50)
[2019-07-21] MEDS: EFFEXOR PO SCH (09:51)
[2019-07-21] MEDS: PRINIVIL PO SCH (09:52)
[2019-07-21] MEDS: VITAMIN C PO SCH (09:52)
[2019-07-21] MEDS: ICAR-C PLUS PO SCH (09:52)
[2019-07-21] MEDS: ANTIVERT PO SCH ×2 (09:52)
[2019-07-21] MEDS: PERICOLACE PO SCH (09:53)
[2019-07-21] MEDS: RYTHMOL PO SCH (09:53)
[2019-07-21] MEDS: TOPROL XL PO SCH (09:53)
[2019-07-21 11:26] LABS: ANISOCYTOSIS 3+; BASO 1 % (0-1); EOS 3 % (1-10); HYPOCHROM 3+; LYMPHS 27 % (21-51); MICROCYTOSIS 3+; MONO 9 % (1-9); POLYCHROM 1+; SEGS 60 % (42-75)
--- NOTE | 2019-07-22 13:12 | DISCHARGE SUMMARY ---
ADMISSION DATE: 07/18/2019 DISCHARGE DATE: 07/21/2019 CONSULTS: GI, Dr. Valentine. PROCEDURES: Upper endoscopy showing mild gastritis in the gastric body, a few sessile polyps, normal duodenum. PERTINENT LABORATORY DATA: Initial hemoglobin 6.4, discharge hemoglobin 8.6. Initial creatinine 1.4, discharge creatinine 1.2. Initial sodium 135, discharge sodium 141. Urinalysis unremarkable. Urine culture negative. DISCHARGE DIAGNOSES: 1. Gastrointestinal bleed. 2. Acute on chronic blood-loss anemia. 3. Paroxysmal atrial fibrillation. 4. Hypertension. 5. Diabetes. 6. Likely chronic kidney disease stage 3. 7. Mild cognitive impairment versus very mild dementia. 8. Hyperlipidemia. HOSPITAL COURSE: The patient came to treatment as she was complaining of dizziness and weakness, was found to have low blood counts, was sent to the ER. Her initial hemoglobin was 6.4. She was transfused 2 units. It came up to 8.4. EGD was performed, which showed gastritis and a few sessile polyps, but no definite source of bleeding. However, the patient's blood counts stabilized after transfusion. On the day of discharge, hemoglobin was 8.6. The patient's home Eliquis was held initially. After discussion with the patient and family about risks versus benefits, it was restarted prior to discharge. Signs and symptoms of recurrent bleeding were discussed, including fatigue, malaise, dizziness, especially on standing, and pallor. The patient has a history of paroxysmal atrial fibrillation, but was normal sinus rhythm during the hospitalization. Her other chronic comorbidities, including hyperlipidemia, diabetes, hypertension, and possibly mild dementia were stable. The patient's creatinine was initially 1.4, on discharge it was 1.2. Looking back in our records, that appears to be pretty much what she has run in the past. Almost all her creatinines have been from 1.1 to 1.4, so I suspect this is just baseline CKD 3. She did have some gastritis. Her home Protonix was increased. She had pretty significant hypertension on her home medications. Despite being on both her home lisinopril and Toprol, her blood pressures were running with systolics in the 150s to 190s consistently. Because of this, Norvasc was added. Because she was placed on Norvasc, her home statin was changed from simvastatin to atorvastatin to avoid medication interactions. She was discharged home to follow up with PCP and GI. DISCHARGE DIET: Diabetic, low salt. DISCHARGE MEDICATIONS: Donepezil 5 mg p.o. at bedtime, meclizine 12.5 mg p.o. b.i.d. as needed, Effexor 37.5 mg p.o. daily, glipizide extended-release 7.5 mg p.o. daily, iron tablet daily, Lantus 15 units subcutaneously daily, metformin 1000 mg p.o. daily, lisinopril 20 mg p.o. daily, Seroquel 25 mg p.o. at bedtime, Toprol-XL 50 mg p.o. daily, atorvastatin 40 mg p.o. at bedtime, aspirin 81 mg daily, Eliquis 5 mg p.o. daily, [place] as previously prescribed, Norvasc 10 mg p.o. daily, omeprazole 40 mg p.o. daily, propafenone 225 mg p.o. b.i.d., Zofran 4 mg p.o. every 4 hours as needed. FOLLOWUP AND PLAN: Patient discharging home on slightly increased dose of Protonix. Continuing blood thinners despite risk of recurrent bleeding, after discussion with patient and family. Patient to follow up with PCP and GI. TIME SPENT: Greater than 30 minutes were spent arranging discharge and counseling the patient.
== END 2019-07-21 13:00 | disposition home or self-care (01) | DRG 378 ==
LOC: ED 17:04 → SUATTDRO 23:59 → 4N 23:59
PROVIDERS: ATTEND Internal Medicine